=== PATIENT | male | born 1985 | race Caucasian/White ===

== ENCOUNTER 2017-08-22 09:32 | Emergency (ER) | payer OTHER ==
[2017-08-22 09:43] VITALS: BP 123/73; PULSE 65; TEMP 97.4; BMI 31.8
--- NOTE | 2017-08-22 10:03 | PDOC ---
History of Present Illness - General Chief Complaint: Pain Stated Complaint: ABD PAIN Time Seen by Provider: 08/22/17 09:36 History Source: Patient Exam Limitations: No Limitations - History of Present Illness Travel History: No Initial Comments: 08/22/17 09:58 32y M no pmhx presents with complaint of abdominal pain. The pt states he was having a BM this morning when he suddenly had a tightness epgiastric pain that radiating to his R flank. Pt notes some nausea and sob associated due to the degree of the pain. The pain lasted approx 45 min and was severe, 10/10, but has since resolved. Pt denies any fever/chills, vomiting, chest pain, ruelas, back pain, numbness/tingling/weakness, radaition to the testicles, testicular pain, bpr, melena, dysuria. Pt has never had this pain before. pt has not taken any meds for the pain, but states pain went from 10/10 at arrival to 2/10 currently last meal was last night around 8pm that was pizza no abd surgeries Past History - Past Medical History Allergies/Adverse Reactions: Allergies Allergy/AdvReac Type Severity Reaction Status Date / Time No Known Allergies Allergy Verified 08/22/17 09:36 Home Medications: Ambulatory Orders NK [No Known Home Medication] 08/22/17 COPD: No - Suicide/Smoking/Psychosocial Hx Smoking History: Never smoked Have you smoked in the past 12 months: No Information on smoking cessation initiated: No Hx Alcohol Use: No Drug/Substance Use Hx: No Substance Use Type: None Review of Systems - Review of Systems Able to Perform ROS?: Yes Comments:: 08/22/17 10:01 Constitutional - no reported Fever, Chills, HEENT: no reported vision changes, sore throat Respiratory: no reported cough, sob, hemoptysis Cardiac: no reported chest pain, palpitations, light headedness, leg swelling Abd/GI: + abd pain, nausea, no reported vomiting, blood per rectum, melena, diarrhea : no reported dysuria, frequency, discharge Musculskelatal - no reported back pain, joint swelling skin - no reported bruising, erythema, rash neurological: no reported headache, numbness, focal weakness, tingling, ataxia, hematologic: no reported easy bruising, easy bleeding *Physical Exam - Vital Signs Last Vital Signs Temp Pulse Resp BP Pulse Ox 97.4 F L 65 20 123/73 100 08/22/17 09:32 08/22/17 09:32 08/22/17 09:32 08/22/17 09:32 08/22/17 09:32 - Physical Exam Comments: 08/22/17 10:01 GENERAL: The patient is awake, alert, and fully oriented, Nontoxic - in no acute distress. HEAD: Normocephalic, atraumatic. EYES: extraocular movements intact, sclera anicteric, conjunctiva clear. ENT: Normal voice, Moist mucous membranes. NECK: Normal range of motion, supple LUNGS: Breath sounds equal, clear to auscultation bilaterally. No wheezes, no rhonchi, no rales. HEART: Regular rate and rhythm, normal S1 and S2 without murmur, rub or gallop. ABDOMEN: Soft, nontender, neg murphies, neg mcburneys, No guarding, no rebound. No CVA tenderness EXTREMITIES: Normal range of motion, no edema. No clubbing or cyanosis. No cords, erythema, or tenderness. NEUROLOGICAL: No facial assymetry, Normal speech, PSYCH: Normal mood, normal affect. SKIN: Warm, Dry, normal turgor, Heart Score/ECG Review - ECG Impressions Comment:: 08/22/17 15:13 Twelve-lead EKG was performed and reviewed by me. There is normal sinus rhythm with a rate of 53 The axis is normal. The intervals are normal. There is normal R wave progression T wave flattening in lead 3 Sinus bradycardia ED Treatment Course - LABORATORY CBC & Chemistry Diagram: 08/22/17 10:02 08/22/17 10:02 Medical Decision Making - Medical Decision Making 08/22/17 10:02 32-year-old gentleman no past medical history presenting with sudden onset of right upper quadrant pain associated nausea, shortness breath lasting approximately 45 minutes but then has since resolved. On exam the patient is well-appearing, in no acute distress, abdomen is soft and nontender. Differential for the patient's symptoms includes possible gall stones, kidney stones consider possible ACS however patient's pain is highly atypical. Will obtain EKG, CBC, CMP, UA Patient states he is not currently in pain will defer pain meds until it recurrs 08/22/17 13:37 labs rviewed, unremarkble ua neg US noted for some sludging w/o cbd diltation or gall stones no signs of hydro pt feeling improved abd soft nontender on reassessment will dc the pt with pmd fu after discussion with the patient, will defer CT at this time to screen for kidney stones as pt feeling asymptomatic I discussed the physical exam findings, ancillary test results and final diagnoses with the patient. I answered all of the patient's questions. The patient was satisfied with the care received and felt comfortable with the discharge plan and treatment plan. The patient will call their primary care physician within 24 hours to arrange follow-up and will return to the Emergency Department with any new, persistent or worsening symptoms. *DC/Admit/Observation/Transfer Diagnosis at time of Disposition: RUQ abdominal pain, Sludge in gallbladder - Discharge Dispostion Disposition: HOME Condition at time of disposition: Improved Decision to Admit order: No - Referrals Referrals: Shiva Velasco MD [Staff Physician] - - Patient Instructions Printed Discharge Instructions: DI for Abdominal Pain-Adult Additional Instructions: Return to the emergency department immediately with ANY new, persistent or worsening symptoms including worsening abdominal pain, fevers, inability to tolerate oral intake, chest pain, shortness of breath or any other concerns. Stay well hydrated. A copy of your lab work and Ultrasound are included. You MUST call and follow up with your doctor in 2-3 days. Your emergency department visit is not complete without a followup with your doctor for reevaluation. Please make sure your doctor reviews the results of your emergency evaluation. Print Language: AZERI - Post Discharge Activity
[2017-08-22] MEDS ORDERED: KETOROLAC TROMETHAMINE 30 MG/1 ML VIAL IVPUSH ONE (10:07)
[2017-08-22] MEDS ORDERED: SODIUM CHLORIDE 1,000 ML IV ONE (10:07)
[2017-08-22] MEDS ORDERED: KETOROLAC TROMETHAMINE 30 MG/1 ML VIAL ONE (10:12)
[2017-08-22 10:13] LABS: URINE APPEARANCE Clear; URINE BILIRUBIN Negative (NEGATIVE); URINE BLOOD Negative (NEGATIVE); URINE GLUCOSE (UA) Negative (NEGATIVE); URINE KETONE Negative (NEGATIVE); URINE LEUK ESTERASE Negative (NEGATIVE); URINE NITRITE Negative (NEGATIVE); URINE PROTEIN Negative (NEGATIVE); URINE UROBILINOGEN 0.2 (0.2-1.0)
[2017-08-22 10:14] LABS: URINE COLOR AMBER
[2017-08-22 10:20] LABS: BASO % 0.6 % (0-2.0); WHITE BLOOD COUNT 5.8 K/mm3 (4.0-10.8)
[2017-08-22 10:23] LABS: HEMATOCRIT 45.7 % (35.4-49); HEMOGLOBIN 15.4 GM/dl (11.7-16.9); LYMPH % 25.6 % (8-40); MCH 31.4 pg (25.7-33.7); MCHC 33.7 g/dl (32.0-35.9); MEAN CELL VOLUME 93.2 fl (80-96); MEAN PLT VOLUME 8.2 fl (7.5-11.1); MONO % 7.9 % (3.8-10.2); NEUT % 64.9 % (42.8-82.8); PLATELET COUNT 335 K/MM3 (134-434); RBC 4.91 M/mm3 (4.00-5.60); RDW 11.9 % (11.9-15.9)
[2017-08-22 10:28] LABS: ALBUMIN 4.6 g/dl (3.5-5.0); ALK PHOS 62 U/L (32-92); ANION GAP 5 (8-16); BLOOD UREA NITROGEN 22 mg/dl (7-18); CALCIUM 9.4 mg/dl (8.4-10.2); CHLORIDE 105 mmol/L (98-107); CO2 25 mmol/L (22-28); CREATININE 0.9 mg/dl (0.6-1.3); GLUCOSE,RANDOM 101 mg/dl (74-106); POTASSIUM 4.2 mmol/L (3.5-5.1); SGOT/AST 24 U/L (10-42); SGPT/ALT 34 U/L (10-40); SODIUM 135 mmol/L (136-145)
[2017-08-22 10:30] LABS: BILIRUBIN,TOTAL < 0.5 mg/dl (0.2-1.0)
--- NOTE | 2017-08-23 09:59 | EKG ---
Test Reason : Blood Pressure : / mmHG Vent. Rate : 053 BPM Atrial Rate : 053 BPM P-R Int : 124 ms QRS Dur : 092 ms QT Int : 438 ms P-R-T Axes : 023 019 016 degrees QTc Int : 410 ms SINUS BRADYCARDIA OTHERWISE NORMAL ECG NO PREVIOUS ECGS AVAILABLE Confirmed by ROYER GRESHAM, SHANNA ([id number]) on 08/23/2017 9:59:45 AM Referred By: NAZ TREVINO Confirmed By:SHANNA LINTON MD
== END 2017-08-22 13:49 | disposition home or self-care (01) ==
LOC: FER 09:32
PROC: 3E0333Z Introduction of Anti-inflammatory into Peripheral Vein, Percutaneous Approach (ICD-10-PCS; principal; 2017-08-22)
PROC: 3E0337Z Introduction of Electrolytic and Water Balance Substance into Peripheral Vein, Percutaneous Approach (ICD-10-PCS; 2017-08-22)
DX: R10.11 Right upper quadrant pain (principal); K82.8 Other specified diseases of gallbladder
CPT/HCPCS: 36415; 76705-TC; 80053; 81003; 85025; 93005; 99283-25; J7030